=== PATIENT | female | born 1975 | race Caucasian/White ===

== ENCOUNTER 2016-12-19 14:01 | Emergency (ER) | payer MEDICAID ==
[2016-12-19 14:20] VITALS: BP 123/93; PULSE 78; RESP 18; TEMP 97.3; O2SAT 99
--- NOTE | 2016-12-19 14:31 | ED PDOC ---
HPI: Eye Injury/Pain Time Seen by Provider: 12/19/16 14:26 Chief Complaint (Nursing): Eye Problem Chief Complaint (Provider): eye discharge History Per: Patient History/Exam Limitations: no limitations Onset/Duration Of Symptoms: Days (x4) Current Symptoms Are (Timing): Still Present Associated Symptoms: Itching, Discharge From Eye Additional Complaint(s): Rhina is a 41 y/o female who presents to the ED complaining of bilateral eye itchiness since Sunday. She woke up today with crusting and discharge from both eyes. Patient is able to see, but describes having cloudy vision yesterday. She does not wear contact lenses or glasses. Patient denies foreign body to either eye. PMD: None Past Medical History Reviewed: Historical Data, Nursing Documentation, Vital Signs Vital Signs: Last Vital Signs Temp 97.3 F L 12/19/16 14:18 Pulse 78 12/19/16 14:18 Resp 18 12/19/16 14:18 BP 123/93 H 12/19/16 14:18 Pulse Ox 99 12/19/16 14:18 - Medical History PMH: Anxiety, Depression - Surgical History Surgical History: No Surg Hx - Family History Family History: States: No Known Family Hx - Living Arrangements Living Arrangements: With Friends/Others - Social History Current smoker - smoking cessation education provided: No Alcohol: Social Drugs: Denies - Home Medications Home Medications: Ambulatory Orders Medication Instructions Recorded Alprazolam [Xanax] 0.5 mg PO HS #10 tab 10/29/15 Tobramycin [Tobrex] 5 ml TOP QID #1 bottle 12/19/16 - Allergies Allergies/Adverse Reactions: Allergies Allergy/AdvReac Type Severity Reaction Status Date / Time No Known Allergies Allergy Verified 10/24/15 23:45 Review of Systems ROS Statement: Except As Marked, All Systems Reviewed And Found Negative Constitutional: Negative for: Fever Eyes: Positive for: Conjunctivae Inflammation, Other (itchiness and discharge from both eyes). Negative for: Vision Change Gastrointestinal: Negative for: Nausea, Vomiting Neurological: Negative for: Headache, Dizziness Physical Exam - Reviewed Nursing Documentation Reviewed: Yes Vital Signs Reviewed: Yes - Physical Exam Appears: Positive for: Well, Non-toxic, No Acute Distress Head Exam: Positive for: ATRAUMATIC, NORMAL INSPECTION, NORMOCEPHALIC Skin: Positive for: Normal Color. Negative for: Rash Eye Exam: Positive for: EOMI, PERRL, Conjunctival injection (bilaterally), Other (scant yellow discharge noted to both eyes). Negative for: Nystagmus, Periorbital swelling, Periorbital tenderness Neurologic/Psych: Positive for: Alert, Oriented, Gait (steady) - ECG O2 Sat by Pulse Oximetry: 99 (RA) Pulse Ox Interpretation: Normal Medical Decision Making Medical Decision Making: Clinical Impression: Conjunctivitis Will give prescription for Tobramycin ophthalmic drops. Patient is stable for discharge home. Provided referral for Ophthalmology and advised patient to follow up if symptoms persist. There is agreement to discharge plan. Return if symptoms worsen. Scribe Attestation: Documented by Ramona Scruggs, acting as a scribe for Marcia Glynn PA-C Provider Scribe Attestation: All medical record entries made by the Scribe were at my direction and personally dictated by me. I have reviewed the chart and agree that the record accurately reflects my personal performance of the history, physical exam, medical decision making, and the department course for this patient. I have also personally directed, reviewed, and agree with the discharge instructions and disposition. Disposition - Clinical Impression Clinical Impression: Conjunctivitis - Patient ED Disposition Is Patient to be Admitted: No Counseled Patient/Family Regarding: Diagnosis, Need For Followup, Rx Given - Disposition Referrals: Austin Jennings MD [Staff Provider] - Disposition: Routine/Home Disposition Time: 14:30 Condition: STABLE Additional Instructions: Apply drops as directed. Follow up with eye doctor for any persistent symptoms. Prescriptions: Tobramycin [Tobrex] 5 ml TOP QID #1 bottle Instructions: Conjunctivitis (ED) Forms: [employer] (Swedish)
== END 2016-12-19 16:03 | disposition home or self-care (01) ==
LOC: H.ER 14:01
DX: H10.9 Unspecified conjunctivitis (principal); F32.9 Major depressive disorder, single episode, unspecified; F41.9 Anxiety disorder, unspecified

== ENCOUNTER 2017-10-29 21:56 | Emergency (ER) | payer MEDICAID ==
[2017-10-29 22:09] VITALS: RESP 18; TEMP 99.3; O2SAT 99
[2017-10-29 22:48] LABS: BASO # 0.1 K/uL (0.0-0.2); EOS # 0.2 K/uL (0.0-0.7); EOS % 3.8 % (0.0-4.0); HEMOGLOBIN 14.4 g/dL (12.0-16.0); LYMPH % 30.9 % (20.0-40.0); MEAN CELL VOLUME 96.4 fl (81.0-99.0); MEAN CORPUSCULAR HEMOGLOBIN 33.1 pg (27.0-31.0); MEAN CORPUSCULAR HGB CONC 34.3 g/dL (33.0-37.0); MEAN PLATELET VOLUME 8.1 fl (7.2-11.7); MONO # 0.6 K/uL (0.0-0.8); MONO % 9.3 % (0.0-10.0); NEUT # 3.6 K/uL (1.8-7.0); RBC 4.35 Mil/uL (3.80-5.20); RED CELL DISTRIBUTION WIDTH 12.6 % (11.5-14.5); WHITE BLOOD COUNT 6.5 K/uL (4.8-10.8)
--- NOTE | 2017-10-29 22:49 | ED PDOC ---
HPI: Psych/Substance Abuse Time Seen by Provider: 10/29/17 22:30 Chief Complaint (Nursing): Psychiatric Evaluation Chief Complaint (Provider): crisis eval History Per: Patient History/Exam Limitations: intoxication Suicide/Self Injury Attempted (Context): Cut Wrists Modifying Factor(s): Alcohol Additional Complaint(s): 42 y/o female history of anxiety, depression (noncompliant with meds) self- presents for psych eval. Patient states there has been a lot of "bad things" going on in her life recently and tonight she took a razor and cut her left wrist. Patient tearful, admits to drinking tonight. Denies suicidal/homicidal ideations, hallucinations, acute physical complaints. History of cutting in past. Tetanus up to date. Past Medical History Reviewed: Historical Data, Nursing Documentation, Vital Signs Vital Signs: Last Vital Signs Temp 99.3 F 10/29/17 22:05 Pulse 98 H 10/29/17 22:05 Resp 18 10/29/17 22:05 BP 118/76 10/29/17 22:05 Pulse Ox 99 10/29/17 22:05 - Medical History PMH: Anxiety, Depression Denies: Diabetes, Hepatitis, HIV, HTN, Chronic Kidney Disease, Seizures, Sexually Transmitted Disease - Surgical History Surgical History: No Surg Hx - Family History Family History: States: Unknown Family Hx - Immunization History Hx Influenza Vaccination: No Hx Pneumococcal Vaccination: No - Home Medications Home Medications: Ambulatory Orders Medication Instructions Recorded Alprazolam [Xanax] 0.5 mg PO HS #10 tab 10/29/15 Tobramycin [Tobrex] 5 ml TOP QID #1 bottle 12/19/16 - Allergies Allergies/Adverse Reactions: Allergies Allergy/AdvReac Type Severity Reaction Status Date / Time No Known Allergies Allergy Verified 10/24/15 23:45 Review of Systems ROS Statement: Except As Marked, All Systems Reviewed And Found Negative Psych: Positive for: Depression Physical Exam - Reviewed Nursing Documentation Reviewed: Yes Vital Signs Reviewed: Yes - Physical Exam Appears: Positive for: Well, Non-toxic, Uncomfortable (tearful) Head Exam: Positive for: ATRAUMATIC, NORMAL INSPECTION, NORMOCEPHALIC Skin: Positive for: Normal Color Eye Exam: Positive for: Normal appearance ENT: Positive for: Normal ENT Inspection Cardiovascular/Chest: Positive for: Regular Rate, Rhythm Respiratory: Positive for: Normal Breath Sounds Gastrointestinal/Abdominal: Positive for: Normal Exam Back: Positive for: Normal Inspection Extremity: Positive for: Normal ROM, Capillary Refill (<2 sec b/l UE), Other (3 superficial abrasions volar left wrist; distal NV/motor infact. 1 superficial abrasion distal right hand 3rd digit; FROM. No active bleeding) Neurologic/Psych: Positive for: Alert, Oriented (x3). Negative for: Motor/ Sensory Deficits - Laboratory Results Result Diagrams: 10/29/17 22:44 10/29/17 22:44 - ECG O2 Sat by Pulse Oximetry: 99 - Progress ED Course And Treament: labs, urine, 1:1, crisis eval abrasions cleaned with NS, bacitracin applied 00:45 Patient awake, alert, oriented x3. 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 Paulson. 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
[2017-10-29 22:57] LABS: SQUAMOUS EPITHIAL 3 /hpf (0-5); URINE BILIRUBIN NEGATIVE (NEGATIVE); URINE BLOOD NEGATIVE (NEGATIVE); URINE CLARITY SLIGHTY-CLOUDY (Clear); URINE COLOR STRAW (YELLOW); URINE GLUCOSE (UA) NEG (Normal); URINE LEUKOCYTE ESTERASE NEG Leu/uL (Negative); URINE PROTEIN NEGATIVE (NEGATIVE); URINE UROBILINOGEN 0.2-1.0 mg/dL (0.2-1.0)
[2017-10-29 22:58] LABS: ALB/GLOB RATIO 1.5 (1.0-2.1); ALBUMIN 4.8 g/dL (3.5-5.0); ALT/SGPT 22 U/L (9-52); AST/SGOT 25 U/L (14-36); BLOOD UREA NITROGEN 8 mg/dl (7-17); CALCIUM 9.3 mg/dL (8.4-10.2); GFR NON-AFRICAN AMERICAN > 60
[2017-10-29 23:24] LABS: BARBITURATES, UR NEGATIVE (NEGATIVE); BENZODIAZEPINES, UR NEGATIVE (NEGATIVE); OPIATES, UR NEGATIVE (NEGATIVE); PHENCYCLIDINE, UR NEGATIVE (NEGATIVE)
[2017-10-30 01:13] VITALS: BP 112/70; PULSE 85
== END 2017-10-30 01:13 | disposition home or self-care (01) ==
LOC: H.ER 21:56
DX: F10.94 Alcohol use, unspecified with alcohol-induced mood disorder (principal); S60.819A Abrasion of unspecified wrist, initial encounter; Z86.59 Personal history of other mental and behavioral disorders

== ENCOUNTER 2018-06-22 08:40 | Emergency (ER) | payer MEDICAID ==
[2018-06-22 08:46] VITALS: BMI 22.1
--- NOTE | 2018-06-22 09:16 | ED PDOC ---
HPI:Nausea, Vomiting, Diarrhea Time Seen by Provider: 06/22/18 09:09 Chief Complaint (Nursing): GI Problem Chief Complaint (Provider): diarrhea x 3 days History Per: Patient History/Exam Limitations: no limitations Additional Complaint(s): 43 y/o F with hx of anxiety and depression who presents with diarrhea x 3 days. Pt states that she has been having 10 -15 watery BMs per day for the past 3 days with intermittent migraines with photophobia. Admits to having some chills but denies visual/speech/gait disturbance, dizziness, N/V, fever. States that stool has mucous at this point. She has been taking Immodium and had some improvement yesterday but diarrhea returned today. She also has been taking Naproxen for GARCIA but has not taken any meds today. Past Medical History Reviewed: Historical Data, Nursing Documentation, Vital Signs Vital Signs: Last Vital Signs Temp 98.6 F 06/22/18 08:44 Pulse 83 06/22/18 08:44 Resp 17 06/22/18 08:44 BP 94/67 L 06/22/18 08:44 Pulse Ox 99 06/22/18 08:44 - Medical History PMH: Anxiety, Depression Denies: Diabetes, Hepatitis, HIV, HTN, Chronic Kidney Disease, Seizures, Sexually Transmitted Disease - Surgical History Other surgeries: ventral hernia repair - Family History Family History: States: Unknown Family Hx - Immunization History Hx Influenza Vaccination: No Hx Pneumococcal Vaccination: No - Home Medications Home Medications: Ambulatory Orders Medication Instructions Recorded Alprazolam [Xanax] 0.5 mg PO HS #10 tab 10/29/15 Tobramycin [Tobrex] 5 ml TOP QID #1 bottle 12/19/16 - Allergies Allergies/Adverse Reactions: Allergies Allergy/AdvReac Type Severity Reaction Status Date / Time No Known Allergies Allergy Verified 10/24/15 23:45 Review of Systems Constitutional: Positive for: Chills. Negative for: Fever Gastrointestinal: Positive for: Abdominal Pain, Diarrhea. Negative for: Nausea, Vomiting, Melena Genitourinary Female: Negative for: Dysuria Neurological: Positive for: Headache. Negative for: Weakness, Change in Speech, Altered Mental Status, Dizziness Physical Exam - Reviewed Nursing Documentation Reviewed: Yes Vital Signs Reviewed: Yes - Physical Exam Appears: Positive for: Non-toxic Skin: Positive for: Normal Color. Negative for: Pallor Eye Exam: Positive for: EOMI, PERRL (pupillary constriction) Cardiovascular/Chest: Positive for: Regular Rate, Rhythm Respiratory: Positive for: Normal Breath Sounds Gastrointestinal/Abdominal: Positive for: Soft. Negative for: Tenderness, Mass, Guarding, Rebound - Laboratory Results Result Diagrams: 06/22/18 09:32 06/22/18 09:32 - ECG O2 Sat by Pulse Oximetry: 99 Medical Decision Making Medical Decision Making: CBC, CMP, lipase NS 1 L IV x 1 Bentyl 10mg PO x 1 Toradol 30mg IV x 1 Reglan 10mg IV x 1 Re-evaluation 11:45am: re-evaluation, patient feeling better but has had 4 watery BMs with mucous while in ED. Repeat SBP 84/63. Additional NS 1L IV ordered. 13:30: re-assessed: pt states that she feels better. Her GARCIA has improved and she overall feels as if she has more energy. Repeat BP: 95/62 (patient states baseline SBP 90s). Denies dizziness. Pt advised to stay home and drink plenty of clear fluids. Return instructions given. Take Pepto Bismol intermittently for symptoms. Patient in agreement with plan. Stable for d/c home. Disposition - Clinical Impression Clinical Impression: Diarrhea - Patient ED Disposition Is Patient to be Admitted: No - Disposition Referrals: [facility] [Outside] Efrain Hopper MD [Staff Provider] - Disposition: Routine/Home Disposition Time: 14:02 Condition: IMPROVED Additional Instructions: Follow up with your primary care doctor in 2 days if symptoms persist. Return to ER if you are unable to keep up with fluid intake, develop a fever, worsening abdominal pain or are feeling weak. Avoid Immodium as you want your body to get rid of infection. Stay well hydrated. Avoid fatty foods and milk products. Instructions: Diarrhea and Traveler's Diarrhea, Adult (DC) Forms: [employer] (Polish), [facility] School/Work Excuse Print Language: [place]
[2018-06-22] MEDS ORDERED: Sodium Chloride 0.9% 1,000 ML IV STA ×2 (09:32→11:53)
[2018-06-22 09:36] LABS: BASO % 0.7 % (0.0-2.0); EOS # 0.2 K/uL (0.0-0.7); EOS % 3.9 % (0.0-4.0); HEMOGLOBIN 13.5 g/dL (12.0-16.0); LYMPH # 0.4 K/uL (1.0-4.3); MEAN CELL VOLUME 93.7 fl (81.0-99.0); MEAN CORPUSCULAR HEMOGLOBIN 31.8 pg (27.0-31.0); MEAN CORPUSCULAR HGB CONC 33.9 g/dL (33.0-37.0); MEAN PLATELET VOLUME 7.9 fl (7.2-11.7); MONO # 0.7 K/uL (0.0-0.8); MONO % 15.3 % (0.0-10.0); NEUT # 3.4 K/uL (1.8-7.0); NEUT % 71.1 % (50.0-75.0); PLATELET COUNT 213 K/uL (130-400); RBC 4.26 Mil/uL (3.80-5.20); RED CELL DISTRIBUTION WIDTH 12.8 % (11.5-14.5); WHITE BLOOD COUNT 4.8 K/uL (4.8-10.8)
[2018-06-22 10:01] LABS: ALB/GLOB RATIO 1.4 (1.0-2.1); ALT/SGPT 28 U/L (9-52); AST/SGOT 30 U/L (14-36); BLOOD UREA NITROGEN 13 mg/dl (7-17); CALCIUM 8.6 mg/dL (8.4-10.2); GFR NON-AFRICAN AMERICAN > 60; LIPASE 55 U/L (23-300)
[2018-06-22 10:18] LABS: BANDS 4 % (0-2); EOSINOPHIL 2 % (0-7); LYMPHOCYTE 8 % (20-50); MONOCYTE 12 % (0-10); NEUTROPHIL 73 % (42-75); PLATELET ESTIMATE NORMAL (NORMAL); REACTIVE LYMPHOCYTES 1 % (0-0); TOTAL CELLS COUNTED 100
[2018-06-22 10:19] LABS: ANISOCYTOSIS SLIGHT
[2018-06-22 13:26] VITALS: BP 95/62; PULSE 69; RESP 15; TEMP 98.8
[2018-06-22 14:01] VITALS: O2SAT 99
== END 2018-06-22 14:07 | disposition home or self-care (01) ==
LOC: H.ER 08:40
DX: R19.7 Diarrhea, unspecified (principal)
CPT/HCPCS: 80053; 81025; 83690; 85025; 96374; 96375; 99284; J1885; J2765; J7030